=== PATIENT | female | born 1960 | race African-American/Black ===

== ENCOUNTER 2021-05-12 11:15 | Emergency (ER) | payer MEDICAID ==
[~2021-05-12] VITALS: Ht 165.1 cm; Wt 75.0 kg
[2021-05-12 11:30] VITALS: BP 133/84
[2021-05-12] MEDS ORDERED: POTA-9 PO (23:48)
[2021-05-12] MEDS ORDERED: ATOR40TA70 PO (23:48)
[2021-05-12] MEDS ORDERED: METF-416 PO (23:48)
[2021-05-12] MEDS ORDERED: AMLO10TA80 PO (23:48)
[2021-05-12] MEDS ORDERED: LISI20TA31 PO (23:48)
== END 2021-05-12 16:24 | disposition left against medical advice (07) ==
LOC: ER 11:15
DX: K62.5 Hemorrhage of anus and rectum (principal); Z88.0 Allergy status to penicillin; I10 Essential (primary) hypertension; E11.9 Type 2 diabetes mellitus without complications; E78.00 Pure hypercholesterolemia, unspecified; Z98.890 Other specified postprocedural states
CPT/HCPCS: 93005; 99283

== ENCOUNTER 2021-05-12 13:33 | Inpatient (IN) | payer MEDICAID ==
[~2021-05-12] VITALS: Ht 165.1 cm; Wt 82.1 kg
[2021-05-12] MEDS ORDERED: SODIUM CHLORIDE 0.9% 1,000 ML IV ONE (14:45)
[2021-05-12] MEDS ORDERED: PANTOPRAZOLE SODIUM 40 MG/VIAL IV ONE (14:45)
[2021-05-12 14:58] LABS: BASOPHILS % 0.5 % (0.0-2.0); EOSINOPHILS % 2.6 % (0.0-5.0); HEMOGLOBIN. 12.4 g/dL (12.0-16.0); LYMPHOCYTES % 37.9 % (20.0-50.0); MEAN CORPUSCULAR HEMOGLOBIN 29.9 pg (28.0-32.0); MEAN CORPUSCULAR VOLUME 89.1 fL (81.0-99.0); MEAN PLATELET VOLUME 7.8 fl (7.4-10.4); MONOCYTES % 5.7 % (2.0-8.0); NEUTROPHILS % 53.3 % (40.0-76.0); PLATELET 263 x1000/uL (130-400); RED BLOOD CELL COUNT 4.15 mill/uL (4.2-5.4); RED CELL DISTRIBUTION WIDTH 13.4 % (11.6-14.6)
[2021-05-12 15:03] LABS: CHLORIDE 112 mEq/L (98-107)
[2021-05-12 15:07] LABS: PARTIAL THROMBOPLASTIN TIME 26.8 sec (23.4-31.0)
[2021-05-12] MEDS ORDERED: PANTOPRAZOLE SODIUM 40 MG/VIAL IV NR (15:15)
[2021-05-12] MEDS ORDERED: ACETAMINOPHEN 325MG TABLET PO PRN (16:00)
[2021-05-12] MEDS ORDERED: CLONIDINE 0.1MG TABLET PO PRN (16:00)
[2021-05-12] MEDS ORDERED: IPRATROPIUM/ALBUTEROL 0.5-3(2.5)MG/3ML NEB HHN PRN (16:00)
[2021-05-12] MEDS ORDERED: ONDANSETRON HCL 4MG/2ML INJ IV PRN (16:00)
[2021-05-12] MEDS ORDERED: DIPHENHYDRAMINE 50MG/ML VIAL IV PRN (16:00)
[2021-05-12 17:29] LABS: CLARITY URINE CLEAR (CLEAR); COLOR URINE YELLOW (YELLOW); KETONES URINE TRACE (NEGATIVE); LEUKOCYTE ESTERASE URINE NEGATIVE (NEGATIVE); NITRITE URINE NEGATIVE (NEGATIVE); OCCULT BLOOD URINE NEGATIVE (NEGATIVE); PROTEIN URINE TRACE (NEGATIVE); SPECIFIC GRAVITY URINE 1.029 (1.005-1.030)
[2021-05-12 19:14] LABS: HEMATOCRIT 31.9 % (36.0-48.0); HEMOGLOBIN 10.8 g/dL (12.0-16.0); MEAN CORPUSCULAR HEMOGLOBIN 30.1 pg (28.0-32.0); MEAN CORPUSCULAR VOLUME 89.4 fL (81.0-99.0); PLATELET 238 x1000/uL (130-400); RED BLOOD CELL COUNT 3.57 mill/uL (4.2-5.4); RED CELL DISTRIBUTION WIDTH 13.7 % (11.6-14.6)
[2021-05-12 19:21] LABS: CHLORIDE 114 mEq/L (98-107)
[2021-05-12 21:55] VITALS: BP 111/56
[2021-05-12] MEDS ORDERED: METF-416 PO (23:48)
[2021-05-12] MEDS ORDERED: ATOR40TA70 PO (23:48)
[2021-05-12] MEDS ORDERED: AMLO10TA80 PO (23:48)
[2021-05-12] MEDS ORDERED: LISI20TA31 PO (23:48)
[2021-05-12] MEDS ORDERED: POTA-9 PO (23:48)
[2021-05-13] VITALS: BP 104/66
[2021-05-13 04:00] VITALS: BP 94/67
[2021-05-13 05:25] LABS: BASOPHILS % 0.4 % (0.0-2.0); EOSINOPHILS % 2.6 % (0.0-5.0); HEMATOCRIT. 26.3 % (36.0-48.0); HEMOGLOBIN. 9.1 g/dL (12.0-16.0); LYMPHOCYTES % 41.6 % (20.0-50.0); MEAN CORPUSCULAR HEMOGLOBIN 30.5 pg (28.0-32.0); MEAN CORPUSCULAR VOLUME 88.2 fL (81.0-99.0); MEAN PLATELET VOLUME 8.1 fl (7.4-10.4); MONOCYTES % 7.9 % (2.0-8.0); NEUTROPHILS % 47.5 % (40.0-76.0); PLATELET 206 x1000/uL (130-400); RED BLOOD CELL COUNT 2.98 mill/uL (4.2-5.4); RED CELL DISTRIBUTION WIDTH 13.2 % (11.6-14.6)
[2021-05-13 05:29] LABS: CHLORIDE 113 mEq/L (98-107)
[2021-05-13 05:38] LABS: LDL CHOLESTEROL 67 mg/dL (5-100)
[2021-05-13 05:39] LABS: HDL CHOLESTEROL 36 mg/dL (40-59)
[2021-05-13 07:56] VITALS: BP 103/71
[2021-05-13] MEDS: PANTOPRAZOLE SODIUM 40 MG/VIAL IV SCH (08:53)
[2021-05-13 11:55] VITALS: BP 99/56
[2021-05-13 15:52] VITALS: BP 116/78
[2021-05-13 19:22] LABS: PHOSPHORUS 3.7 mg/dL (2.5-4.9)
[2021-05-13 20:28] VITALS: BP 131/84
[2021-05-13 20:52] LABS: HEMATOCRIT 24.2 % (36.0-48.0); HEMOGLOBIN 8.6 g/dL (12.0-16.0)
[2021-05-14 00:32] VITALS: BP 110/66
[2021-05-14 01:10] LABS: HEMATOCRIT 24.4 % (36.0-48.0); HEMOGLOBIN 8.6 g/dL (12.0-16.0)
[2021-05-14 04:00] VITALS: BP 126/81
[2021-05-14 05:46] LABS: BASOPHILS % 0.3 % (0.0-2.0); EOSINOPHILS % 3.3 % (0.0-5.0); HEMATOCRIT. 24.3 % (36.0-48.0); HEMOGLOBIN. 8.3 g/dL (12.0-16.0); LYMPHOCYTES % 49.3 % (20.0-50.0); MEAN CORPUSCULAR HEMOGLOBIN 29.9 pg (28.0-32.0); MEAN CORPUSCULAR VOLUME 87.6 fL (81.0-99.0); NEUTROPHILS % 41.1 % (40.0-76.0); PLATELET 192 x1000/uL (130-400); RED BLOOD CELL COUNT 2.77 mill/uL (4.2-5.4); RED CELL DISTRIBUTION WIDTH 13.3 % (11.6-14.6)
[2021-05-14 06:20] LABS: CHLORIDE 111 mEq/L (98-107)
[2021-05-14 07:55] VITALS: BP 121/82
[2021-05-14] MEDS: PANTOPRAZOLE SODIUM 40 MG/VIAL IV SCH (09:01)
[2021-05-14 11:35] VITALS: BP 106/76
[2021-05-14 15:54] VITALS: BP 106/76
[2021-05-14 16:28] VITALS: BP 133/82
== END 2021-05-14 18:01 | disposition home or self-care (01) | DRG 810 ==
LOC: ER 13:58 → 6WST 15:25 → EDBEDREQTM 16:03 → EDBEDREQ 16:03 → EDBEDREQSVC 16:03 → ENRESERV 20:25
PROVIDERS: ADMIT Internal Medicine; ATTEND Internal Medicine
DX: K91.840 Postprocedural hemorrhage of a digestive system organ or structure following a digestive system procedure (principal); E87.0 Hyperosmolality and hypernatremia; D64.9 Anemia, unspecified; E78.5 Hyperlipidemia, unspecified; E11.9 Type 2 diabetes mellitus without complications; E78.00 Pure hypercholesterolemia, unspecified; K57.30 Diverticulosis of large intestine without perforation or abscess without bleeding; I10 Essential (primary) hypertension; K64.8 Other hemorrhoids; Y83.8 Other surgical procedures as the cause of abnormal reaction of the patient, or of later complication, without mention of misadventure at the time of the procedure; Y92.89 Other specified places as the place of occurrence of the external cause; Z82.49 Family history of ischemic heart disease and other diseases of the circulatory system
CPT/HCPCS: 36415; 71045; 80048; 80053; 80061; 81003; 82962; 83036; 83735; 84100; 84443; 85014; 85018; 85025; 85027; 86850; 86900; 93005; 99285; C9113; J7030